=== PATIENT | female | born 1945 | race Two or more races ===

== ENCOUNTER 2024-05-10 15:30 | Inpatient (IN) | payer OTHER ==
[~2024-05-10] VITALS: Ht 165.1 cm; Wt 62.2 kg
[2024-05-10 18:49] LABS: Basophils # (auto) 0.1 10 ^3/uL (0-0.2); Basophils % (auto) 0.5 % (0.0-2.0); Eosinophils # (auto) 0 10 ^3/uL (0-0.8); Lymphocytes # (auto) 1.9 10 ^3/uL (0.4-5.4); Red Cell Distribution Width 15.5 % (11.8-14.3); White Blood Cell 18.3 10^3/uL (4.4-10.8)
[2024-05-10 18:51] LABS: Hematocrit 38.5 % (36.0-46.0); Hemoglobin 12.6 g/dL (12.2-16.2); Lymphocytes % (auto) 10.7 % (10.0-50.0); Mean Corpuscular Hemoglobin 27.2 pg (28.0-32.0); Mean Corpuscular Hgb Conc. 32.7 g/dL (32.0-36.0); Mean Corpuscular Volume 83.4 fL (80.0-100.0); Monocytes # (auto) 1.2 10 ^3/uL (0-1.3); Monocytes % (auto) 6.6 % (0.0-12.0); Neutrophils % (auto) 82.2 % (37.0-80.0); Platelet Count (auto) 578 10^3/uL (140-450); Red Blood Cells 4.61 10^6/uL (4.0-5.20)
[2024-05-10 19:32] LABS: Albumin 4.2 g/dL (3.2-4.8); Alkaline Phosphatase 101 U/L (46-116); Anion Gap 8 (5-15); Aspartate Aminotransferase 11 U/L (13-40); BUN/Creatinine Ratio 30.6 (10.0-20.0); Blood Urea Nitrogen 26 mg/dL (9-23); Calcium 10.9 mg/dL (8.7-10.4); Carbon Dioxide 30 mmol/L (20-30); Chloride 111 mmol/L (98-107); Glucose 380 mg/dL (74-106); Potassium 3.9 mmol/L (3.5-5.1); Sodium 149 mmol/L (136-145)
[2024-05-10 19:33] LABS: Bilirubin, Total 0.3 mg/dL (0.2-1.0)
[2024-05-10 19:42] LABS: Total Protein 7.4 g/dL (5.7-8.2)
[2024-05-10 19:46] LABS: Alanine Aminotransferase 9 U/L (7-40)
[2024-05-10] MEDS ORDERED: HYDROcodone-ACET 5/325MG TAB PO PRN (21:30)
[2024-05-10] MEDS: ASPirin 81 mg TAB PO ONE (21:30)
[2024-05-10] MEDS ORDERED: ACETAMINOPHEN 325 MG TAB PO PRN (21:30)
[2024-05-10] MEDS ORDERED: DEXTROSE (50%) 50ML SYRG IV PRN (21:30)
[2024-05-10] MEDS ORDERED: DOCUSATE SOD 100 MG CAP PO PRN (21:30)
[2024-05-10] MEDS: ATORVASTATIN 20 MG TAB PO SCH (22:00)
[2024-05-10] MEDS: METOPROLOL TARTRATE 25 MG TAB PO SCH (22:00)
[2024-05-10 22:05] VITALS: PULSE 113; RESP 27; O2SAT 93
[2024-05-10] MEDS: SODIUM CHLORIDE 0.9% 500 ML IVB ONE (22:31)
[2024-05-10] MEDS ORDERED: NITROGLYCERIN 0.4 MG SL TAB SL PRN (22:45)
[2024-05-10] MEDS ORDERED: MORPHINE SULFATE INJ 2 MG/ml SYRG IV PRN (22:45)
[2024-05-10] MEDS: cefTRIAXone 1GM/50ML D5W 50 ML IV ONE (23:05)
[2024-05-10] MEDS: LACTATED RINGER'S 1,000 ML IV SCH (23:18)
[2024-05-11 00:08] LABS: Urine Bacteria MOD /hpf (None Seen); Urine Blood Negative /uL (Negative); Urine Budding Yeast MODERATE /hpf (None Seen); Urine Clarity Turbid (Clear); Urine Color Yellow (Yellow); Urine Hyaline Cast FEW /lpf (0 - 2); Urine Mucus FEW (None Seen); Urine Protein, UAD 1+ (Negative); Urine Specific Gravity 1.032 (1.001-1.035); Urine Urobilinogen Normal (Negative); Urine WBC 69 /hpf (0 - 5); Urine pH 5.5 (5.0-9.0)
[2024-05-11] MEDS: ACCU-CHEK COMFORT CURVE STRIP VI SCH (01:22)
[2024-05-11] MEDS: InsuLIN REG 1unit/0.01ml Soln (100units/ml) SC SCH (01:30)
[2024-05-11] MEDS: hydrALAZINE HCL 20 MG/ML VL IV PRN (01:36)
[2024-05-11] MEDS: ONDANSETRON HCL 4 MG/2 ML VIAL IV PRN (05:33)
[2024-05-11] MEDS: MORPHINE SULFATE INJ 2 MG/ml SYRG IV ONE (05:34)
[2024-05-11 07:02] LABS: Eosinophils # (auto) 0 10 ^3/uL (0-0.8); Eosinophils % (auto) 0.1 % (0.0-7.0); Lymphocytes # (auto) 2.4 10 ^3/uL (0.4-5.4)
[2024-05-11 07:03] LABS: Basophils # (auto) 0.1 10 ^3/uL (0-0.2)
[2024-05-11 07:09] LABS: Basophils % (auto) 0.7 % (0.0-2.0); Hemoglobin 11.5 g/dL (12.2-16.2); Mean Corpuscular Hemoglobin 27.6 pg (28.0-32.0); Mean Corpuscular Hgb Conc. 32.8 g/dL (32.0-36.0); Mean Corpuscular Volume 84.3 fL (80.0-100.0); Monocytes % (auto) 5.7 % (0.0-12.0); Neutrophils # (auto) 13.8 10 ^3/uL (1.6-8.6); Neutrophils % (auto) 79.5 % (37.0-80.0); Platelet Count (auto) 494 10^3/uL (140-450); Red Blood Cells 4.16 10^6/uL (4.0-5.20); Red Cell Distribution Width 14.9 % (11.8-14.3); White Blood Cell 17.3 10^3/uL (4.4-10.8)
[2024-05-11 07:19] LABS: Alanine Aminotransferase 10 U/L (7-40); Alkaline Phosphatase 86 U/L (46-116); Anion Gap 8 (5-15); Aspartate Aminotransferase 16 U/L (13-40); BUN/Creatinine Ratio 30.6 (10.0-20.0); Blood Urea Nitrogen 19 mg/dL (9-23); Calcium 10.3 mg/dL (8.7-10.4); Carbon Dioxide 29 mmol/L (20-30); Chloride 116 mmol/L (98-107); Glucose 242 mg/dL (74-106); Potassium 3.4 mmol/L (3.5-5.1); Sodium 153 mmol/L (136-145)
[2024-05-11 07:20] LABS: Bilirubin, Total 0.2 mg/dL (0.2-1.0); Total Protein 6.5 g/dL (5.7-8.2)
[2024-05-11 07:30] VITALS: PULSE 108; RESP 16; O2SAT 98
[2024-05-11 07:33] LABS: Albumin 3.9 g/dL (3.2-4.8)
[2024-05-11] MEDS ORDERED: VANCOMYCIN PER PHARMACY 0 MG IV SCH (08:30)
[2024-05-11] MEDS: cefTRIAXone 1GM/50ML D5W 50 ML IV SCH (09:00)
[2024-05-11] MEDS: ASPirin 81 mg TAB PO SCH (10:00)
[2024-05-11] MEDS: VANCOMYCIN 1.75GM/350ML 350 ML IV ONE (11:15)
[2024-05-11 13:22] VITALS: BP 157/69; PULSE 90; RESP 18; TEMP 98.1; O2SAT 99
[2024-05-11 17:07] VITALS: BP 121/46; PULSE 79; RESP 16; TEMP 98.7; O2SAT 92
[2024-05-11 17:49] LABS: Rapid Influenza A Negative (Negative); Rapid Influenza B Negative (Negative)
[2024-05-11 17:50] LABS: COVID19 ANTIGEN SOFIA FIA NEGATIVE (NEGATIVE)
[2024-05-11] MEDS: VANCOMYCIN 1GM/200ML 200 ML IV SCH (22:48)
[2024-05-12] VITALS (9 sets, daily range): BP systolic 127–165; BP diastolic 58–78; PULSE 92–109; RESP 14–20; TEMP 97.7–98.7; O2SAT 96–100
[2024-05-12] MEDS: ENOXAPARIN SOD 40 MG/0.4 ML SYRINGE SC SCH (16:40)
[2024-05-13] VITALS (9 sets, daily range): BP systolic 124–165; BP diastolic 61–76; PULSE 75–105; RESP 14–20; TEMP 98.2–99.6; O2SAT 95–100
[2024-05-13] MEDS: Ensure HIGH Protein Chocolate 8oz Bottle PO SCH (12:00)
[2024-05-13] MEDS ORDERED: TPN PER PHARMACY 0 ML IV SCH (14:00)
[2024-05-13] MEDS ORDERED: DEXTROSE (50%) 50ML SYRG IV SCH (14:15)
[2024-05-13] MEDS: InsuLIN REG 1unit/0.01ml Soln (100units/ml) SC SCH (18:00)
[2024-05-13] MEDS: ACCU-CHEK COMFORT CURVE STRIP VI SCH (18:00)
[2024-05-13 18:36] LABS: INR 1.14 (0.9-1.15); Partial Thromboplastin Time 26.4 SEC (24.5-34.5)
[2024-05-13] MEDS: AMINO ACID INFUSION IN D10W 1,000 ML IV ONE (20:14)
[2024-05-14] VITALS (9 sets, daily range): BP systolic 112–160; BP diastolic 56–68; PULSE 67–96; RESP 18–20; TEMP 97.7–98.9; O2SAT 97–100
[2024-05-14] MEDS: LIDOCAINE 1% (LOCAL ANESTH.) PF 5ml SDV ID ONE (09:15)
[2024-05-14] MEDS: FLUCONAZOLE 200MG/100ML 100 ML IV SCH (10:00)
[2024-05-14] MEDS: SODIUM CHLOR 0.9% PF (SALINE LOCK) 10ML VIAL/SYR IV SCH (10:00)
[2024-05-14 11:43] LABS: Basophils # (auto) 0.1 10 ^3/uL (0-0.2); Eosinophils # (auto) 0.1 10 ^3/uL (0-0.8); Hemoglobin 10.1 g/dL (12.2-16.2); Neutrophils % (auto) 82.3 % (37.0-80.0); Red Cell Distribution Width 15.3 % (11.8-14.3)
[2024-05-14 11:47] LABS: Basophils % (auto) 0.5 % (0.0-2.0); Eosinophils % (auto) 0.7 % (0.0-7.0); Hematocrit 30.8 % (36.0-46.0); Lymphocytes # (auto) 1.4 10 ^3/uL (0.4-5.4); Lymphocytes % (auto) 11.5 % (10.0-50.0); Mean Corpuscular Hgb Conc. 32.7 g/dL (32.0-36.0); Mean Corpuscular Volume 82.7 fL (80.0-100.0); Monocytes # (auto) 0.6 10 ^3/uL (0-1.3); Neutrophils # (auto) 9.8 10 ^3/uL (1.6-8.6); Platelet Count (auto) 400 10^3/uL (140-450); Red Blood Cells 3.72 10^6/uL (4.0-5.20); White Blood Cell 11.9 10^3/uL (4.4-10.8)
[2024-05-14 12:04] LABS: Alkaline Phosphatase 78 U/L (46-116); Anion Gap 6 (5-15); Calcium 9.8 mg/dL (8.7-10.4); Carbon Dioxide 30 mmol/L (20-30); Chloride 111 mmol/L (98-107)
[2024-05-14 12:05] LABS: Aspartate Aminotransferase 10 U/L (13-40); BUN/Creatinine Ratio 32.6 (10.0-20.0); Blood Urea Nitrogen 14 mg/dL (9-23); Glucose 213 mg/dL (74-106); Magnesium 1.5 mg/dL (1.6-2.6)
[2024-05-14 12:06] LABS: Albumin 3.3 g/dL (3.2-4.8)
[2024-05-14 12:07] LABS: Bilirubin, Total 0.3 mg/dL (0.2-1.0); Phosphorus 2.4 mg/dL (2.4-5.1); Total Protein 5.2 g/dL (5.7-8.2)
[2024-05-14 12:11] LABS: Alanine Aminotransferase < 9 U/L (7-40); Sodium 147 mmol/L (136-145)
[2024-05-14] MEDS: MAGNESIUM SULFATE 1GM/100ML 100 ML IV ONE (14:12)
[2024-05-14] MEDS: ERTAPENEM SOD INJ 1 GM in SODIUM CHL 0.9% 50 ML IV SCH (15:22)
[2024-05-14] MEDS: POTASSIUM PHOSPHATE 22 MEQ in SODIUM CHL 0.9% 100 ML IV ONE (15:22)
[2024-05-14] MEDS: POTASSIUM CHL 20MEQ/100ML 100 ML IV ONE (16:49)
[2024-05-14] MEDS: TPN PER PHARMACY IV NR (21:12)
[2024-05-14] MEDS: LACTATED RINGER'S 1,000 ML IV SCH (21:13)
[2024-05-15] VITALS (8 sets, daily range): BP systolic 121–156; BP diastolic 63–82; PULSE 81–98; RESP 14–20; TEMP 97.5–98.8; O2SAT 91–99
[2024-05-15 06:49] LABS: Alkaline Phosphatase 61 U/L (46-116); Anion Gap 8 (5-15); Blood Urea Nitrogen 10 mg/dL (9-23); Calcium 8.7 mg/dL (8.7-10.4); Carbon Dioxide 24 mmol/L (20-30); Chloride 104 mmol/L (98-107); Magnesium 2.2 mg/dL (1.6-2.6); Potassium 5.1 mmol/L (3.5-5.1); Triglycerides 198 mg/dL (< 150)
[2024-05-15 06:50] LABS: Albumin 2.9 g/dL (3.2-4.8); Aspartate Aminotransferase 8 U/L (13-40)
[2024-05-15 06:51] LABS: Bilirubin, Total 0.2 mg/dL (0.2-1.0); Phosphorus 3.5 mg/dL (2.4-5.1); Total Protein 4.9 g/dL (5.7-8.2)
[2024-05-15 06:56] LABS: Alanine Aminotransferase < 9 U/L (7-40); Sodium 136 mmol/L (136-145)
[2024-05-15 07:05] LABS: Glucose 627 mg/dL (74-106)
[2024-05-15 13:01] LABS: Albumin 3.3 g/dL (3.2-4.8); Alkaline Phosphatase 72 U/L (46-116); Anion Gap 7 (5-15); Aspartate Aminotransferase < 8 U/L (13-40); BUN/Creatinine Ratio 35.3 (10.0-20.0); Blood Urea Nitrogen 12 mg/dL (9-23); Calcium 9.2 mg/dL (8.7-10.4); Carbon Dioxide 27 mmol/L (20-30); Chloride 111 mmol/L (98-107); Glucose 152 mg/dL (74-106); Sodium 145 mmol/L (136-145)
[2024-05-15 13:02] LABS: Bilirubin, Total 0.3 mg/dL (0.2-1.0); Total Protein 5.5 g/dL (5.7-8.2)
[2024-05-15 13:11] LABS: Alanine Aminotransferase < 9 U/L (7-40); Potassium 2.9 mmol/L (3.5-5.1)
[2024-05-15] MEDS: LINEZOLID 600MG/300ML 300 ML IV SCH (13:52)
[2024-05-15] MEDS: TPN PER PHARMACY IV NR (20:23)
[2024-05-16] VITALS (7 sets, daily range): BP systolic 140–165; BP diastolic 46–67; PULSE 79–94; RESP 14–20; TEMP 98–99; O2SAT 97–100
[2024-05-16] MEDS ORDERED: fentaNYL CITRATE 100 MCG/2 ML VL ONE (01:04)
[2024-05-16] MEDS ORDERED: ROPIVACAINE HCL 200 ML ONE (01:04)
[2024-05-16 08:29] LABS: Basophils # (auto) 0.1 10 ^3/uL (0-0.2); Basophils % (auto) 0.8 % (0.0-2.0); Eosinophils # (auto) 0.1 10 ^3/uL (0-0.8); Eosinophils % (auto) 0.5 % (0.0-7.0); Hematocrit 27.9 % (36.0-46.0); Lymphocytes # (auto) 1.4 10 ^3/uL (0.4-5.4); Lymphocytes % (auto) 13.5 % (10.0-50.0); Mean Corpuscular Hemoglobin 28.1 pg (28.0-32.0); Mean Corpuscular Hgb Conc. 32.4 g/dL (32.0-36.0); Mean Corpuscular Volume 86.5 fL (80.0-100.0); Monocytes # (auto) 0.6 10 ^3/uL (0-1.3); Monocytes % (auto) 5.9 % (0.0-12.0); Neutrophils # (auto) 8.4 10 ^3/uL (1.6-8.6); Neutrophils % (auto) 79.3 % (37.0-80.0); Nucleated Red Blood Cells % 0.1 %; Platelet Count (auto) 356 10^3/uL (140-450); Red Blood Cells 3.22 10^6/uL (4.0-5.20); Red Cell Distribution Width 15.7 % (11.8-14.3); White Blood Cell 10.6 10^3/uL (4.4-10.8)
[2024-05-16 08:36] LABS: Albumin 3.1 g/dL (3.2-4.8); Alkaline Phosphatase 67 U/L (46-116); Anion Gap 8 (5-15); Aspartate Aminotransferase 9 U/L (13-40); BUN/Creatinine Ratio 21.4 (10.0-20.0); Blood Urea Nitrogen 12 mg/dL (9-23); Calcium 8.5 mg/dL (8.7-10.4); Carbon Dioxide 27 mmol/L (20-30); Chloride 101 mmol/L (98-107); Potassium 2.6 mmol/L (3.5-5.1)
[2024-05-16 08:37] LABS: Bilirubin, Total < 0.2 mg/dL (0.2-1.0); Phosphorus 3.1 mg/dL (2.4-5.1); Total Protein 5.1 g/dL (5.7-8.2)
[2024-05-16 08:39] LABS: Alanine Aminotransferase < 9 U/L (7-40); Sodium 136 mmol/L (136-145)
[2024-05-16 08:40] LABS: Glucose 659 mg/dL (74-106)
[2024-05-16] MEDS: POTASSIUM CHL 20MEQ/100ML 100 ML IV SCH (10:23)
[2024-05-16] MEDS: POTASSIUM CHLORIDE IV NR (20:42)
[2024-05-16] MEDS: FAT EMULSION IV NR (20:42)
[2024-05-16] MEDS: [UNRECOGNIZED DRUG - OTHER] IV NR (20:42)
[2024-05-16] MEDS: SODIUM CHLORIDE IV NR (20:42)
[2024-05-17 00:35] VITALS: BP 128/54; PULSE 95; RESP 16; TEMP 98.6; O2SAT 97
[2024-05-17 01:00] VITALS: BP 128/54; PULSE 95; RESP 16; TEMP 98.6; O2SAT 97
== END 2024-05-17 01:34 | DRG 871 ==
LOC: ER 15:30 → EDBD 15:30 → TELE 22:42 → TELE-CENTR 05-11 13:19
PROVIDERS: ADMIT Nurse Practitioner Family; ATTEND Internal Medicine
PROC: 02HV33Z Insertion of Infusion Device into Superior Vena Cava, Percutaneous Approach (ICD-10-PCS; principal; 2024-05-14)
PROC: B548ZZA Ultrasonography of Superior Vena Cava, Guidance (ICD-10-PCS; 2024-05-14)
DX: A41.9 Sepsis, unspecified organism (principal); E43 Unspecified severe protein-calorie malnutrition; L89.623 Pressure ulcer of left heel, stage 3; L89.613 Pressure ulcer of right heel, stage 3; G93.41 Metabolic encephalopathy; N39.0 Urinary tract infection, site not specified; L97.429 Non-pressure chronic ulcer of left heel and midfoot with unspecified severity; D75.839 Thrombocytosis, unspecified; E11.621 Type 2 diabetes mellitus with foot ulcer; E11.65 Type 2 diabetes mellitus with hyperglycemia; E78.00 Pure hypercholesterolemia, unspecified; E86.0 Dehydration; F32.A Depression, unspecified; I10 Essential (primary) hypertension; L98.429 Non-pressure chronic ulcer of back with unspecified severity; Z20.822 Contact with and (suspected) exposure to COVID-19; L89.150 Pressure ulcer of sacral region, unstageable; Z66 Do not resuscitate; F03.90 Unspecified dementia, unspecified severity, without behavioral disturbance, psychotic disturbance, mood disturbance, and anxiety; Z68.22 Body mass index [BMI] 22.0-22.9, adult; Z82.49 Family history of ischemic heart disease and other diseases of the circulatory system
CPT/HCPCS: 36415; 36569; 70450; 71045; 80053; 80202; 81001; 82565; 82962; 83036; 83605; 83735; 84100; 84478; 85025; 85610; 85730; 87040; 87077; 87086; 87088; 87186; 87205; 87426; 87804; 92610; 93005; 96361; 96365; 96366; 96367; 96375; 99291; G0378; J1335; J1450; J1815; J2405; J3480; J7131